=== PATIENT | female | born 1970 | race Caucasian/White ===

== ENCOUNTER 2020-07-27 13:29 | Emergency (ER) | payer BC, SELFPAY ==
[2020-07-27] MEDS ORDERED: Meclizine HCl 25 MG TAB ONE (13:53)
== END 2020-07-27 14:17 | disposition home or self-care (01) ==
LOC: BURERS 13:29
DX: H83.09 Labyrinthitis, unspecified ear (principal); F17.210 Nicotine dependence, cigarettes, uncomplicated
CPT/HCPCS: 99406

== ENCOUNTER 2020-11-21 10:32 | Emergency (ER) | payer OTHER, SELFPAY ==
[2020-11-21] MEDS ORDERED: Nicotine 7 MG PATCH TOP ONE (10:33)
[2020-11-21 11:44] LABS: ALT (SGPT) 239 U/L (8-55); AST (SGOT) 157 U/L (5-34); Albumin 3.8 g/dL (3.5-5.0); Alkaline Phosphatase 133 U/L (40-110); Anion Gap 15 mmol/L (10-20); BUN (Urea Nitrogen) 25 mg/dL (9.8-20.1); Bilirubin, Total 0.4 mg/dL (0.2-1.2); CK (CPK) 52 U/L (29-168); Calc. Creatinine Clearance 0 mL/min (70-130); Calcium 8.8 mg/dL (7.8-10.44); Carbon Dioxide 23 mmol/L (22-29); Chloride 105 mmol/L (98-107); Globulin 3.3 g/dL (2.4-3.5); Glucose 112 mg/dL (70-105); Potassium 4.6 mmol/L (3.5-5.1); Protein, Total 7.1 g/dL (6.0-8.3); Sodium 138 mmol/L (136-145)
[2020-11-21 12:03] LABS: Band 2 % (5-11); Eosinophils 2 % (0-10); Hemoglobin 13.8 g/dL (12.0-16.0); Lymphocytes 22 % (21-51); MDiff Complete? YES; Mean Corpuscular HGB CONC 32.1 g/dL (32.0-36.0); Mean Corpuscular Hemoglobin 27.6 pg (27.0-31.0); Mean Corpuscular Volume 86.1 fL (78.0-98.0); Mean Platelet Volume 15.8 fL (7.4-10.4); Monocytes 3 % (0-10); Neutrophil 71 % (42-75); Platelet Count 184 thou/uL (130-400); Platelet Morphology Comment Appears Adequate; RBC Distribution Width 13.2 % (11.5-14.5); RBC Morphology Normal; Red Blood Cell (RBC) Count 5.04 mill/uL (4.20-5.40); White Blood Cell (WBC) Count 7.2 thou/uL (4.8-10.8)
[2020-11-21 12:04] LABS: CKMB 3.7 ng/mL (0-6.6)
[2020-11-21] MEDS ORDERED: Metoprolol Tartrate 5 MG/5 ML VIAL ONE (12:28)
[2020-11-21] MEDS ORDERED: Aspirin Chewable 81 MG TAB ONE (12:28)
[2020-11-21 13:54] LABS: SARS-CoV-2 NAA Rapid Test Not Detected (NotDetected)
== END 2020-11-21 14:15 | disposition short-term general hospital (02) ==
LOC: BURERS 10:32
DX: I11.0 Hypertensive heart disease with heart failure (principal); I50.9 Heart failure, unspecified; F17.210 Nicotine dependence, cigarettes, uncomplicated; Z86.73 Personal history of transient ischemic attack (TIA), and cerebral infarction without residual deficits; Z20.822 Contact with and (suspected) exposure to COVID-19
CPT/HCPCS: 0240U; 36415; 71046; 80053; 82550; 82553; 83880; 84484; 85025; 93005; 96374

== ENCOUNTER 2020-12-05 09:30 | Emergency (ER) | payer SELFPAY ==
[2020-12-05 09:48] LABS: #Basophils 0.1 thou/uL (0.0-0.2); #Eosinphils 0.3 thou/uL (0.0-0.7); #Lymphocytes 2.6 thou/uL (1.20-3.40); #Monocytes 1.1 thou/uL (0.11-0.59); #Neutrophils 5.2 thou/uL (1.40-6.50); %Basophils 1.1 % (0.0-1.0); %Eosinophils 3.1 % (0.0-10.0); %Lymphocytes 28.1 % (21.0-51.0); %Monocytes 11.9 % (0.0-10.0); %Neutrophils 55.8 % (42.0-75.0); Hemoglobin 15.5 g/dL (12.0-16.0); Mean Corpuscular HGB CONC 31.6 g/dL (32.0-36.0); Mean Corpuscular Hemoglobin 27.3 pg (27.0-31.0); Mean Corpuscular Volume 86.4 fL (78.0-98.0); Platelet Count 217 thou/uL (130-400); RBC Distribution Width 13.2 % (11.5-14.5); Red Blood Cell (RBC) Count 5.67 mill/uL (4.20-5.40); White Blood Cell (WBC) Count 9.4 thou/uL (4.8-10.8)
[2020-12-05 09:52] LABS: PTT 27.2 sec (22.9-36.1)
[2020-12-05] MEDS ORDERED: Ondansetron PF 4 MG/2 ML Vial ONE (09:55)
[2020-12-05 09:59] LABS: ALT (SGPT) 25 U/L (8-55); AST (SGOT) 21 U/L (5-34); Albumin 4.1 g/dL (3.5-5.0); Alkaline Phosphatase 115 U/L (40-110); Anion Gap 16 mmol/L (10-20); BUN (Urea Nitrogen) 33 mg/dL (9.8-20.1); Bilirubin, Total 0.4 mg/dL (0.2-1.2); Calc. Creatinine Clearance 0 mL/min (70-130); Calcium 9.6 mg/dL (7.8-10.44); Carbon Dioxide 27 mmol/L (22-29); Chloride 99 mmol/L (98-107); Globulin 3.8 g/dL (2.4-3.5); Glucose 131 mg/dL (70-105); Potassium 3.8 mmol/L (3.5-5.1); Protein, Total 7.9 g/dL (6.0-8.3); Sodium 138 mmol/L (136-145)
[2020-12-05 10:01] LABS: Acetaminophen Less than 6.0 mcg/mL (10.0-30.0); Alcohol Less than 10 mg/dL (Less than 10); Salicylate Less than 8.0 mg/dL (15.0-30.0)
[2020-12-05 10:08] LABS: Cocaine Metabolite Screen Not Detected (NotDetected); Phencyclidine (PCP) Not Detected (NotDetected); THC/Cannabinoid Screen Not Detected (NotDetected)
[2020-12-05 10:09] LABS: Amphetamine Detected (NotDetected); Barbiturates Screen Not Detected (NotDetected); Benzodiazepine Screen Not Detected (NotDetected); Medtox Control Line Valid? VALID (VALID); Methadone Not Detected (NotDetected); Methamphetamine Detected (NotDetected); Opiate Screen Not Detected (NotDetected); Oxycodone Screen Not Detected (NotDetected); Tricyclic Screen Not Detected (NotDetected)
[2020-12-05 10:20] LABS: CKMB 3.3 ng/mL (0-6.6)
[2020-12-05] MEDS ORDERED: Aspirin Chewable 81 MG TAB ONE (10:27)
[2020-12-05] MEDS ORDERED: Iopamidol 370 76% 100 ML VIAL ONE (11:36)
[2020-12-05] MEDS ORDERED: Lorazepam 2 MG/ML VIAL ONE (12:26)
[2020-12-05 13:11] LABS: Troponin I 0.032 ng/mL (< 0.028)
== END 2020-12-05 16:00 | disposition home or self-care (01) ==
LOC: BURERS 09:30
DX: G45.9 Transient cerebral ischemic attack, unspecified (principal); R93.0 Abnormal findings on diagnostic imaging of skull and head, not elsewhere classified; R77.8 Other specified abnormalities of plasma proteins; I44.7 Left bundle-branch block, unspecified; I50.9 Heart failure, unspecified; R29.703 NIHSS score 3; F17.210 Nicotine dependence, cigarettes, uncomplicated; Z79.899 Other long term (current) drug therapy; Z79.82 Long term (current) use of aspirin
CPT/HCPCS: 36415; 36416; 70450; 70496; 70498; 71045; 80053; 80306; 80307; 82553; 84484; 85025; 85610; 85730; 93005; 94760; 96374; 96375; J2060; J2405; Q9967

== ENCOUNTER 2021-12-10 19:40 | Emergency (ER) | payer SELFPAY ==
[2021-12-10] MEDS ORDERED: CEFAZOLIN 1 GM VIAL ONE (20:10)
[2021-12-10] MEDS ORDERED: Lidocaine 1% w/Epinephrine 1:100K 20 ML VIAL ONE (20:11)
[2021-12-10] MEDS ORDERED: HYDROcodone/Acetaminophen 10/325 mg Tablet ONE (20:13)
[2021-12-10] MEDS ORDERED: Bacitracin 1 PK ONE (20:13)
[2021-12-10] MEDS ORDERED: Boostrix 0.5 ML (Tdap) VIAL ONE (20:13)
[2021-12-10] MEDS ORDERED: Sterile Water 10 ML ONE (20:18)
== END 2021-12-10 22:00 | disposition home or self-care (01) ==
LOC: BURERS 19:40
DX: S81.811A Laceration without foreign body, right lower leg, initial encounter (principal); I50.9 Heart failure, unspecified; F17.210 Nicotine dependence, cigarettes, uncomplicated; Z23 Encounter for immunization; Z86.73 Personal history of transient ischemic attack (TIA), and cerebral infarction without residual deficits; W26.8XXA Contact with other sharp object(s), not elsewhere classified, initial encounter
CPT/HCPCS: 12032; 90471; 90715; 96372; J0690

== ENCOUNTER 2021-12-20 12:06 | Emergency (ER) | payer SELFPAY ==
[2021-12-20] MEDS ORDERED: Clindamycin 150 MG CAP ONE (12:33)
== END 2021-12-20 12:38 | disposition home or self-care (01) ==
LOC: BURERS 12:06
DX: S91.312D Laceration without foreign body, left foot, subsequent encounter (principal); L03.116 Cellulitis of left lower limb; I50.9 Heart failure, unspecified; F17.210 Nicotine dependence, cigarettes, uncomplicated; Z86.73 Personal history of transient ischemic attack (TIA), and cerebral infarction without residual deficits; W22.8XXD Striking against or struck by other objects, subsequent encounter
CPT/HCPCS: 99283

== ENCOUNTER 2021-12-22 15:13 | Emergency (ER) | payer SELFPAY | END 2021-12-22 15:53 | disposition home or self-care (01) | LOC: BURERS 15:13 | DX: S81.811D Laceration without foreign body, right lower leg, subsequent encounter (principal); I50.9 Heart failure, unspecified; F17.210 Nicotine dependence, cigarettes, uncomplicated; Z86.73 Personal history of transient ischemic attack (TIA), and cerebral infarction without residual deficits ==

== ENCOUNTER 2025-05-09 20:29 | Emergency (ER) | payer SELFPAY ==
[2025-05-09] MEDS ORDERED: Bacitracin 1 PK ONE (22:40)
== END 2025-05-09 22:55 | disposition home or self-care (01) ==
LOC: BURERS 20:29
DX: S61.213A Laceration without foreign body of left middle finger without damage to nail, initial encounter (principal); S61.215A Laceration without foreign body of left ring finger without damage to nail, initial encounter; E11.22 Type 2 diabetes mellitus with diabetic chronic kidney disease; N18.9 Chronic kidney disease, unspecified; F17.210 Nicotine dependence, cigarettes, uncomplicated; Z86.73 Personal history of transient ischemic attack (TIA), and cerebral infarction without residual deficits; W55.32XA Struck by other hoof stock, initial encounter
CPT/HCPCS: 12001; 99283; J3490

== ENCOUNTER 2025-05-20 19:31 | Emergency (ER) | payer SELFPAY | END 2025-05-20 19:52 | disposition home or self-care (01) | LOC: BURERS 19:31 | DX: S61.213D Laceration without foreign body of left middle finger without damage to nail, subsequent encounter (principal); S61.215D Laceration without foreign body of left ring finger without damage to nail, subsequent encounter; E11.22 Type 2 diabetes mellitus with diabetic chronic kidney disease; N18.9 Chronic kidney disease, unspecified; F17.210 Nicotine dependence, cigarettes, uncomplicated; X58.XXXD Exposure to other specified factors, subsequent encounter; Z86.73 Personal history of transient ischemic attack (TIA), and cerebral infarction without residual deficits ==